=== PATIENT | male | born 1995 | race Caucasian/White ===

== ENCOUNTER 2022-04-04 13:27 | Emergency (ER) | payer BC ==
[~2022-04-04] VITALS: Ht 165.1 cm; Wt 65.9 kg
[2022-04-04 13:38] VITALS: BP 135/73
--- NOTE | 2022-04-04 13:45 | NUR ---
26 Y/O MALE BIB SELF DUE TO L SIDED FOREARM/WRIST PAIN S/P WORKING OUT X2 DAYS AGO. PER PATIENT "WHEN HE MAKES A CERTAIN MOVEMENT WITH HIS FINGERS/ARM IT CAUSES OF HIS ARM TO BECOME NUMB." PAIN CURRENTLY IS RATED 8/10. PT DENIES FEVER OR CHILLS. LUNGS CTA. PT DENIES CHEST PAIN, SOB. PMH: DENIES NKA
--- NOTE | 2022-04-04 14:10 | NUR ---
GARRISON WADE AT PT BEDSIDE
[2022-04-04] MEDS ORDERED: KETOROLAC 30 MG/ML VIAL IM ONE (14:40)
[2022-04-04] MEDS ORDERED: NAPR-54 PO (14:42)
[2022-04-04] MEDS ORDERED: GABA100C PO (14:42)
[2022-04-04 14:53] VITALS: BP 131/78
--- NOTE | 2022-04-04 14:54 | NUR ---
Patient discharged with v/s stable. Written and verbal after care instructions given and explained. Patient alert, oriented and verbalized understanding of instructions. Ambulatory with steady gait. All questions addressed prior to discharge. ID band removed. Patient advised to follow up with PMD. Rx of GABAPENTIN,NAPROSYN given. Patient educated on indication of medication including possible reaction and side effects. Opportunity to ask questions provided and answered.
== END 2022-04-04 14:54 | disposition home or self-care (01) ==
LOC: MED 13:27
DX: G56.02 Carpal tunnel syndrome, left upper limb (principal); Z79.899 Other long term (current) drug therapy
CPT/HCPCS: 99283; J1885